=== PATIENT | male | born 1975 | race Caucasian/White ===

== ENCOUNTER 2016-12-17 20:44 | Emergency (ER) | payer SELFPAY ==
[~2016-12-17] VITALS: Ht 165.1 cm; Wt 68.0 kg
[~2016-12-17 20:44] MED LIST: [UNRECOGNIZED DRUG - CODE]
--- NOTE | 2016-12-17 20:55 | NUR ---
PT NICKOLASRA TO ER BED 14. C/O DIFFUSE ABDOMINAL PAIN W/ N/V. SHAKING. ADMITS TO BEEN DRINKING EVERYDAY. GOWNED AND PLACED ON MONITOR. STABLE VITALS. AWAITING MD ANDRADE.
--- NOTE | 2016-12-17 21:06 | NUR ---
NATE POLO AT BEDSIDE FOR EVAL.
--- NOTE | 2016-12-17 21:28 | NUR ---
IV LINE STARTED, BLOOD DRAWN AND SENT TO LAB.
[2016-12-17] MEDS ORDERED: ONDANSETRON HCL/PF 4 MG/2 ML VIAL IVP ONE (21:30)
[2016-12-17] MEDS ORDERED: ACETAMINOPHEN 325 MG TABLET PO ONE (21:30)
[2016-12-17] MEDS ORDERED: IV NS 0.9% 1,000 ML BAG IV ONE (21:30)
--- NOTE | 2016-12-17 21:30 | NUR ---
RADIOLOGY AT BEDSIDE FOR ABDOMINAL XRAY.
[2016-12-17 21:32] LABS: BASOPHILS % (AUTO) 0.9 % (0.0-2.0); EOSINOPHILS # (AUTO) 0.1 /CMM (0.0-0.7); EOSINOPHILS % (AUTO) 2.2 % (0.0-6.0); HEMATOCRIT 49 % (39-51); HEMOGLOBIN 16.6 g/dL (13.5-17.5); LYMPHOCYTES # (AUTO) 1.9 /CMM (0.8-4.8); LYMPHOCYTES % (AUTO) 44.8 % (20.0-44.0); MEAN CORPUSCULAR HEMOGLOBIN 28 PG (26.0-33.0); MEAN CORPUSCULAR HGB CONC 34 g/dl (31.0-36.0); MEAN CORPUSCULAR VOLUME 82 fL (80-96); MONOCYTES # (AUTO) 0.2 /CMM (0.1-1.30); MONOCYTES % (AUTO) 5.8 % (2.0-12.0); NEUTROPHILS # (AUTO) 2.1 /CMM (1.8-8.9); NEUTROPHILS % (AUTO) 46.3 % (43.0-81.0); PLATELET COUNT (AUTO) 266 /CMM (150-450); RDW COEFFICIENT OF VARIATION 14.5 (11.5-15.0); RED BLOOD CELL COUNT(AUTO) 5.94 MIL/uL (4.5-6.0); WHITE BLOOD COUNT (AUTO) 4.3 K/uL (4.3-11.0)
--- NOTE | 2016-12-17 21:38 | NUR ---
RADIOLOGY AT BEDSIDE FOR GALLBLADDER ULTRASOUND.
[2016-12-17] MEDS ORDERED: ONDANSETRON HCL/PF 4 MG/2 ML VIAL ONE (21:46)
[2016-12-17] MEDS ORDERED: ACETAMINOPHEN ES 500 MG TABLET ONE (21:46)
[2016-12-17 21:47] LABS: CALCIUM, SERUM 8.7 mg/dL (8.5-10.1); POTASSIUM 3.7 mmol/L (3.5-5.1)
[2016-12-17 21:53] LABS: ALBUMIN 4.3 g/dL (3.4-5.0); BILIRUBIN,DIRECT 0.1 mg/dL (0.0-0.2); BILIRUBIN,TOTAL 0.7 mg/dL (0.2-1.0); TOTAL PROTEIN, SERUM 8.5 g/dL (6.4-8.2)
--- NOTE | 2016-12-17 23:18 | NUR ---
PT TO RADIOLOGY FOR ABDOMINAL CT SCAN VIA [facility].
--- NOTE | 2016-12-17 23:20 | NUR ---
REPORT TO CHARGE NURSE TEOFILO FOR [facility].
--- NOTE | 2016-12-18 01:30 | NUR ---
PT RESTING COMFORTABLY ON BED. VSS, NAD NOTED. PT AWAKEN TO NAME THEN RETURNS TO SLEEP. WILL CONT TO MONITOR.
--- NOTE | 2016-12-18 03:30 | NUR ---
PT RESTING COMFORTABLY ON BED. VSS, NAD NOTED. PT AWAKEN TO NAME. PT GIVEN WARM BLANKET, THEN RETURNS TO SLEEP. WILL CONT TO MONITOR.
[2016-12-18 06:36] VITALS: BP 112/65
--- NOTE | 2016-12-18 06:37 | NUR ---
Patient discharged to home in stable condition. Written and verbal after care instructions given. Patient verbalizes understanding of instruction.IV removed. Catheter intact and site benign. Pressure and 4x4 applied to site. No bleeding noted. Pt ambulatory with a steady gait. VSS, NAD noted on DC. Denies complaint on DC.
== END 2016-12-18 06:41 | disposition home or self-care (01) ==
LOC: ER 20:44
DX: F10.129 Alcohol abuse with intoxication, unspecified (principal); R10.11 Right upper quadrant pain; R10.13 Epigastric pain; R11.2 Nausea with vomiting, unspecified; R74.8 Abnormal levels of other serum enzymes; K76.0 Fatty (change of) liver, not elsewhere classified; I10 Essential (primary) hypertension
CPT/HCPCS: 36415; 74020; 74176; 76705; 80048; 80076; 83690; 85025; 93005; 96374; 99285; A4606; G0480; J2405; J7030; Z7610; 71250-TC